=== PATIENT | female | born 1960 | race Caucasian/White ===

== ENCOUNTER 2017-06-30 13:40 | Emergency (ER) | payer MEDICARE | END 2017-06-30 17:16 | disposition home or self-care (01) | LOC: D.ER 13:40 | DX: E86.0 Dehydration (principal); E87.6 Hypokalemia; J44.9 Chronic obstructive pulmonary disease, unspecified; K21.9 Gastro-esophageal reflux disease without esophagitis; B19.20 Unspecified viral hepatitis C without hepatic coma ==

== ENCOUNTER 2017-12-16 12:30 | Emergency (ER) | payer MEDICARE | END 2017-12-16 14:30 | disposition home or self-care (01) | LOC: D.ER 12:30 | DX: M54.16 Radiculopathy, lumbar region (principal); R63.4 Abnormal weight loss; J44.9 Chronic obstructive pulmonary disease, unspecified; F17.200 Nicotine dependence, unspecified, uncomplicated ==

== ENCOUNTER → 2017-12-31 15:34 | Outpatient (CLI) | payer MEDICARE | END | disposition home or self-care (01) | LOC: D.MRI 15:34 | DX: S32.10XA Unspecified fracture of sacrum, initial encounter for closed fracture (principal); X58.XXXA Exposure to other specified factors, initial encounter; Y93.89 Activity, other specified; Y92.9 Unspecified place or not applicable ==

== ENCOUNTER → 2018-02-12 09:54 | Outpatient (CLI) | payer MEDICARE | END | disposition home or self-care (01) | LOC: D.MRI 02-06 10:00 | DX: M54.12 Radiculopathy, cervical region (principal); M25.552 Pain in left hip; M25.551 Pain in right hip ==

== ENCOUNTER → 2018-02-28 14:28 | Outpatient (CLI) | payer MEDICARE | END | disposition home or self-care (01) | LOC: D.CT 14:28 | DX: J18.9 Pneumonia, unspecified organism (principal) ==

== ENCOUNTER → 2018-07-07 09:54 | Outpatient (CLI) | payer MEDICARE ==
[~2018-07-07 09:54] MED LIST: ALBUTEROL SULF8.5 GM; ALDACTONE25 MG PO; DIFLUCAN200 MG; FUROSEMIDE40 MG PO; K-DUR20 MEQ; LIBRIUM 10 MG C10 MG PO; MOVANTIK25 MG; OXYCODONE-APAP1 TAB PO; POTASSIUM20 MEQ/11; PULMICORT0.5 MG/21; TOPAMAX200 MG; VITAMIN B-1100 M1
[2018-07-15 12:35] VITALS: BMI 14.6
== END | disposition home or self-care (01) ==
LOC: D.MRI 09:54
DX: R93.8 Abnormal findings on diagnostic imaging of other specified body structures (principal)

== ENCOUNTER 2018-07-15 10:09 | Day surgery (SDC) | payer MEDICARE ==
[~2018-07-15] VITALS: Ht 165.1 cm; Wt 40.0 kg
--- NOTE | ~2018-07-15 | OP ---
PATIENT NAME: GAIL NEIL MEDICAL RECORD: [id number] :58 LOCATION:D.[facility] ADMISSION DATE: SURGEON: ALINE TAYLOR MD DATE OF OPERATION: 07/15/2018 PROCEDURE: EGD with biopsy, EGD with balloon dilatation. BOAT DRIVER: Aline Taylor MD SCOPE: Olympus video gastroscope and CRE microvasive balloon from 45-60 Bahraini. MEDICATIONS: Provided per TIVA anesthesia. The patient has obstructive sleep apnea and received 200 mg of propofol for this procedure, O2 4 liters. 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 FINDINGS: Informed consent was given. The patient was made comfortable with the above medications. After reaching an adequate level of sedation by slow IV push, the patient was placed on her left side. The endoscope was then advanced under direct visualization through the posterior pharyngeal area and advanced to the distal esophagus. At the distal esophageal area, a Galicia's esophagus was appreciated and this was biopsied after we balloon dilated the distal esophageal area to 60-Bahraini. Additionally, the patient had a stenotic Schatzki's ring requiring dilatation as well as a small hiatal hernia seen both on direct and retroflex views. On entering the stomach, a very mild inflammation was seen throughout and Helicobacter pylori histopathology biopsy was taken up within the antrum. The duodenal bulb to the second portion had mild inflammation present. Biopsies were obtained. Of note, we also obtained biopsies due to the history of gluten intolerance. The scope was then withdrawn. IMPRESSION: 1. History of Galicia esophagus, biopsies obtained. 2. Distal Schatzki's ring dilated from 45-60 Bahraini without complication. 3. Small hiatal hernia. 4. Mild gastritis. 5. Mild duodenitis. 6. Gluten intolerance. Biopsies were taken in the second portion of the duodenum. Of note, biopsies were also taken at the antral area looking for H. pylori and of the distal esophagus to confirm Galicia's esophagus. PLAN: 1. Continue present medications, which will include omeprazole at a dose of 20 mg p.o. q.a.m. and Zantac 150 mg p.o. q.h.s. 2. Caution with anti-inflammatory drugs. 3. The patient to follow reflux precautions stringently, both dietary and positional, that is no chocolate, tomato, citrus, caffeine, fatty foods, peppermint, not eat late at night, sit up for a couple hours after meals. 4. Stop smoking. We will discuss this with the patient. TRANSINT:[id number] Voice Confirmation ID: [id number] DOCUMENT ID: [id number] OPERATIVE REPORT [id number] GAIL NEIL BRENDA MD at 1304 CC: ARACELIS MADRIGAL MD and SAURAV KEYS MD [id number] DICTATION DATE: 07/15/18 1323 GRAIN LOADER: 07/15/18 1340 DEP SDC 07/15/18 [address] [id number] [place] [address]
[2018-07-15 10:37] LABS: HEMATOCRIT 46.2 % (36.0-48.0); HEMOGLOBIN 15.6 g/dL (12-16); MCH 30.1 pg (26.0-34.0); MCHC 33.8 g/dL (31.0-37.0); MCV 89.2 fL (80.0-100.0); MEAN PLATELET VOLUME 8.9 fL (7.4-10.4); RBC 5.18 10x6/uL (4.00-5.40); RDW 16.7 % (11.5-14.5); WBC 7.7 10x3/uL (4.8-10.8)
[2018-07-15] MEDS ORDERED: K-DUR20 MEQ (11:23)
[2018-07-15] MEDS ORDERED: MOVANTIK25 MG PO (11:25)
[2018-07-15] MEDS ORDERED: PULMICORT0.5 MG/21 INH (11:26)
[2018-07-15] MEDS ORDERED: ALBUTEROL SULF8.5 GM INH (11:27)
[2018-07-15] MEDS ORDERED: TOPAMAX200 MG (11:27)
[2018-07-15] MEDS ORDERED: ALDACTONE25 MG PO (11:29)
[2018-07-15] MEDS ORDERED: VITAMIN B-1100 M1 PO (11:29)
[2018-07-15] MEDS ORDERED: LIBRIUM 10 MG C10 MG PO (11:29)
[2018-07-15] MEDS ORDERED: DIFLUCAN200 MG (11:30)
[2018-07-15] MEDS ORDERED: FUROSEMIDE40 MG PO (11:30)
[2018-07-15] MEDS ORDERED: POTASSIUM20 MEQ/11 PO (11:31)
[2018-07-15] MEDS ORDERED: OXYCODONE-APAP1 TAB PO (11:34)
[2018-07-15 12:35] VITALS: BP 110/65; Ht 165.1 cm; Wt 40.0 kg
== END 2018-07-15 14:30 | disposition home or self-care (01) ==
LOC: D.OPS 10:09
PROVIDERS: Anesthesiology
DX: K22.70 Barrett's esophagus without dysplasia (principal); K22.2 Esophageal obstruction; K44.9 Diaphragmatic hernia without obstruction or gangrene; K29.50 Unspecified chronic gastritis without bleeding; K29.80 Duodenitis without bleeding; K90.41 Non-celiac gluten sensitivity; G47.33 Obstructive sleep apnea (adult) (pediatric); Z01.812 Encounter for preprocedural laboratory examination

== ENCOUNTER 2018-08-05 10:52 | Inpatient (IN) | payer MEDICARE ==
[~2018-08-05] VITALS: Ht 165.1 cm; Wt 38.3 kg
--- NOTE | ~2018-08-05 | OP ---
PATIENT NAME: GAIL NEIL MEDICAL RECORD: [id number] :58 LOCATION:D. D.2112 ADMISSION DATE:08/05/18 SURGEON: EDILIA MCKENZIE MD DATE OF OPERATION: 08/06/2018 PROCEDURE: Colonoscopy with polypectomy, colonoscopy with biopsy. SCOPE: An Olympus video colonoscope MEDICATIONS: Per TIVA anesthesia. The patient received 180 mg of propofol for this procedure, O2 of 4 liters. INDICATION FOR THE PROPOFOL: Obstructive sleep apnea. INDICATION FOR THE PROCEDURE: Generalized abdominal pain, constipation with occasional diarrhea. FINDINGS: Informed consent was given. The patient was made comfortable with the above medications. After reaching an adequate level of sedation by slow IV push, the patient was placed on her left side. The rectal exam revealed good sphincter tone. No fissures or fistulas were appreciated. No external skin tags were seen. The colonoscope was advanced to the cecum where the ileocecal valve and appendiceal orifice were identified. On the ileocecal valve, a 1 cm polyp was seen and removed with hot biopsy forceps technique. This had a propensity to bleed and a Hemoclip was placed with an excellent result. 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 She is presently on Linzess, Amitiza, milk of magnesia. She does, however, require oxycodone for pain control, which is adding to the problem of constipation. Additionally, the patient is taking Movantik every day. A biopsy was taken in the rectal area to confirm the diagnosis of melanosis coli. Also as the patient does have some occasional diarrhea, we did collect stool and biopsied for that purpose. On retroflexion and final withdrawal of the scope, both internal and external hemorrhoids were seen. The patient did have spasm associated with irritable bowel syndrome, most pronounced on the left side of the colon and due to her previous abdominal surgeries, , hysterectomy and cholecystectomy she also had some mild adhesions. The scope was then withdrawn. IMPRESSION: 1. Melanosis coli. Biopsy obtained in the rectal area. 2. A 1 cm polyp on the IC valve, removed with hot biopsy forcep technique. Also, a Hemoclip placed to control some bleeding. 3. Internal and external hemorrhoids. 4. Spasm associated with irritable bowel syndrome. 5. Mild adhesions. PLAN: 1. Continue present medications. 2. High fiber diet. 3. Return to clinic on a p.r.n. basis. 4. The potassium was 1.9, and after every 4 hours potassium chloride p.o. administration, the patient's potassium was acceptable at 2.6. When she goes home and she tells me she takes approximately 80 mg of potassium a day, we will ask her to take an extra 20 mEq every day and eat foods rich in potassium. OPERATIVE REPORT [id number] GAIL NEIL Also, we will ask her to have her potassium checked this Saturday. TRANSINT:[id number] Voice Confirmation ID: [id number] DOCUMENT ID: [id number] EDILIA MCKENZIE MD at 1304 CC: ARACELIS MADRIGAL MD and SAURAV KEYS MD [id number] DICTATION DATE: 08/06/18 0853 UMBRELLA TIPPER MACHINE: 08/06/18 1102 DIS IN 08/06/18 [id number] [place] [address]
--- NOTE | ~2018-08-05 | MORECARE ---
CASE MANAGEMENT DISCHARGE SUMMARY PATIENT: GAIL NEIL UNIT: [id number] ADM DATE: 08/05/18 AGE: 58 : 58 SEX: F ROOM/BED: D.2112 AUTHOR: TRISTIAN,DOC PHYSICIAN: REFERRING PHYSICIAN: RYANNE RAMIREZ MD DATE OF SERVICE: 08/06/18 Discharge Plan Patient Name: GAIL NEIL Facility: [facility]:[place] : 1960 Planned Disposition: Home Anticipated Discharge Date: 08/06/18 Discharge Date: 08/06/2018 Expected LOS: 1 Initial Reviewer: [email or web address] Initial Review Date: 08/06/2018 Generated: 08/06/18 3:47 pm Comments DCP- Discharge Planning Updated by [email or web address]: Ubaldo Root on 08/06/18 1:[address] Patient Name: GAIL NEIL Admission Status: Elective Accout number: [id number] Admission Date: 08-05-2018 : 1960 Admission Diagnosis: Attending: RYANNE RAMIREZ Current LOS: 1 Anticipated DC Date: 08-06-2018 Planned Disposition: Home Primary Insurance: MEDICARE A & B Discharge Planning Comments: CM MET WITH PT IN ROOM TO DISCUSS DISCHARGE PLANNING AND NEEDS. PT REPORTS LIVING AT HOME INDEPENDENTLY; ALSO IN THE HOME IS PT'S ADULT SON. PT REPORTS HAVING ALL NEEDED MEDICAL EQUIPMENT, OXYGEN FROM [facility], WALKER FROM [facility] AND NEBULIZER FROM [employer]. PT HAS A PRIVATE PAY CAREGIVER FOR TRANSPORTATION AND ASSISTANCE AROUND THE HOME IF NEEDED. CM DISCUSSED AVAILABILITY OF HOME HEALTH, REHAB SERVICES AND MEDICAL EQUIPMENT. PT DENIES DISCHARGE NEEDS, REPORTS HER SON WILL PICK HER UP FOR DISCHARGE HOME TODAY. BROKER NURSE NOTIFIED. Geospatial Specialist: Ubaldo Root DCPIA - Discharge Planning Initial Assessment Updated by [email or web address]: Ubaldo Root on 08/06/18 2:42 pm * Is the patient Alert and Oriented? Yes * How many steps to enter\exit or inside your home? 3 W/RAIL * PCP DR. KEYS * Pharmacy [facility] [place] * Preadmission Environment Home with Family * ADLs Independent * Equipment Back Brace Cane Nebulizer Oxygen Walker * Other Equipment HOME AND PORTABLE OXYGEN, WEARS HOME OXYEN AT NIGHT ONLY [facility] - PROVIDER * List name and contact numbers for known caregivers / representatives who currently or will assist patient after discharge: LEESA NEIL, SON, * Verbal permission to speak to the caregivers and representatives has been obtained from the patient. N/A * Community resources currently utilized Private Duty Care * Please name any agencies selected above. PRIVATE PAY CAREGIVER, 6 HOURS PER DAY, 7 DAYS PER WEEK * Additional services required to return to the preadmission environment? No * Can the patient safely return to the preadmission environment? Yes * Has this patient been hospitalized within the prior 30 days at any hospital? No Patient Name: GAIL NEIL Page [phone] at 1447 All edits/amendments must be made on the electronic document DICTATION DATE: 08/06/181445 LICENSED MORTGAGE LOAN OFFICER: NELI 08/06/181445 RPT#: [id number] DC DATE:08/06/18 STATUS: DIS IN [facility] [address] [place] [address] END OF REPORT
[~2018-08-05 10:52] MED LIST changes: -ALBUTEROL SULF8.5 GM; +ALBUTEROL SULF8.5 GM INH; -MOVANTIK25 MG; +MOVANTIK25 MG PO; -POTASSIUM20 MEQ/11; +POTASSIUM20 MEQ/11 PO; -PULMICORT0.5 MG/21; +PULMICORT0.5 MG/21 INH; -VITAMIN B-1100 M1; +VITAMIN B-1100 M1 PO
[2018-08-05 11:33] LABS: HEMATOCRIT 45.4 % (36.0-48.0); HEMOGLOBIN 15.7 g/dL (12-16); MCH 30.3 pg (26.0-34.0); MCHC 34.6 g/dL (31.0-37.0); MCV 87.6 fL (80.0-100.0); RBC 5.18 10x6/uL (4.00-5.40); RDW 15.9 % (11.5-14.5); WBC 7.2 10x3/uL (4.8-10.8)
[2018-08-05] MEDS ORDERED: ZOFRAN8 MG PO (12:23)
[2018-08-05 12:38] VITALS: BP 95/57; BMI 14.0
[2018-08-05] MEDS ORDERED: TOPAMAX200 MG PO (20:16)
[2018-08-05 20:18] VITALS: BP 98/57; BMI 14.0
[2018-08-05 21:07] LABS: ALBUMIN 3.1 g/dL (3.4-5.0); ALKALINE PHOSPHATASE 45 U/L (46-116); ALT (SGPT) 24 U/L (10-68); BILIRUBIN - TOTAL 0.28 mg/dL (0.2-1.3); CALC OSMOLALITY 266 mosm/kg (275-300); CALCIUM 8.4 mg/dL (8.5-10.1); CARBON DIOXIDE 25.6 mmol/L (21.0-32.0); CHLORIDE - SERUM 98 mmol/L (98-107); CREATININE - SERUM 0.7 mg/dL (0.6-1.3); GLUCOSE 96 mg/dL (74-106); PROTEIN - SERUM 5.8 g/dL (6.4-8.2); SODIUM 134 mmol/L (136-145); UREA NITROGEN 11 mg/dL (7-18); eGFR NON AFRICAN AMERICAN > 90 mL/min (90-120)
[2018-08-05 21:09] LABS: POTASSIUM - SERUM 2.1 mmol/L (3.5-5.1)
[2018-08-06] VITALS: BP 92/46
[2018-08-06 04:00] VITALS: BP 107/53
[2018-08-06 06:13] LABS: BASOPHILS 0.5 % (0-2); EOSINOPHILS 3.5 % (0-7); HEMATOCRIT 39.9 % (36.0-48.0); HEMOGLOBIN 13.7 g/dL (12-16); IMMATURE GRANULOCYTES 0.2 % (0-5); LYMPHOCYTES 30.8 % (15-50); MCH 29.8 pg (26.0-34.0); MCHC 34.3 g/dL (31.0-37.0); MCV 86.7 fL (80.0-100.0); MEAN PLATELET VOLUME 9.1 fL (7.4-10.4); MONOCYTES 11.8 % (2-11); NEUTROPHILS 53.2 % (40-80); PLATELET COUNT 237 10x3/uL (130-400); RDW 15.9 % (11.5-14.5)
[2018-08-06 06:26] LABS: WBC 4.3 10x3/uL (4.8-10.8)
[2018-08-06 06:34] LABS: PROTIME 12.8 SECONDS (11.6-15.0)
[2018-08-06 06:44] LABS: ALKALINE PHOSPHATASE 42 U/L (46-116); ALT (SGPT) 24 U/L (10-68); BILIRUBIN - TOTAL 0.36 mg/dL (0.2-1.3); CALCIUM 8.7 mg/dL (8.5-10.1); CARBON DIOXIDE 25.3 mmol/L (21.0-32.0); CHLORIDE - SERUM 101 mmol/L (98-107); CREATININE - SERUM 0.7 mg/dL (0.6-1.3); GLUCOSE 88 mg/dL (74-106); PROTEIN - SERUM 5.6 g/dL (6.4-8.2); SODIUM 136 mmol/L (136-145); eGFR NON AFRICAN AMERICAN > 90 mL/min (90-120)
[2018-08-06 07:12] LABS: CALC OSMOLALITY 268 mosm/kg (275-300); UREA NITROGEN 8 mg/dL (7-18)
[2018-08-06 07:13] LABS: POTASSIUM - SERUM 2.6 mmol/L (3.5-5.1)
[2018-08-06] MEDS ORDERED: K-DUR20 MEQ PO (10:54)
[2018-08-06 11:12] VITALS: Ht 165.1 cm; Wt 38.3 kg
== END 2018-08-06 11:00 | disposition home or self-care (01) | DRG 988 ==
LOC: D.M2 10:52 → D.OPS 10:52 → D.M2 19:17 → D.OPS 19:18 → D.M2 19:19
PROVIDERS: Anesthesiology; Internal Medicine Gastroenterology
PROC: 0DBC8ZZ Excision of Ileocecal Valve, Via Natural or Artificial Opening Endoscopic (ICD-10-PCS; 2018-08-06)
PROC: 0DBP8ZX Excision of Rectum, Via Natural or Artificial Opening Endoscopic, Diagnostic (ICD-10-PCS; principal; 2018-08-06 07:30)
DX: E87.6 Hypokalemia (principal); F17.213 Nicotine dependence, cigarettes, with withdrawal; K63.89 Other specified diseases of intestine; K63.5 Polyp of colon; K58.1 Irritable bowel syndrome with constipation; K58.0 Irritable bowel syndrome with diarrhea; K21.9 Gastro-esophageal reflux disease without esophagitis; J44.9 Chronic obstructive pulmonary disease, unspecified; G40.909 Epilepsy, unspecified, not intractable, without status epilepticus; F55.2 Abuse of laxatives; K74.60 Unspecified cirrhosis of liver; M79.7 Fibromyalgia; K75.9 Inflammatory liver disease, unspecified; F41.9 Anxiety disorder, unspecified; N73.6 Female pelvic peritoneal adhesions (postinfective); K64.8 Other hemorrhoids; K64.4 Residual hemorrhoidal skin tags; G47.33 Obstructive sleep apnea (adult) (pediatric)

== ENCOUNTER → 2018-09-02 10:13 | Outpatient (CLI) | payer MEDICARE ==
[2018-08-06 11:12] VITALS: BMI 14.0
--- NOTE | ~2018-09-02 | EC ---
PATIENT:GAIL NEIL DATE OF SERVICE: 09/02/18 SEX: F MEDICAL RECORD: [id number] DATE OF : 58 LOCATION:D.RT AGE OF PATIENT: 58 ADMISSION DATE: 09/02/18 REFERRING PHYSICIAN: INTERPRETING PHYSICIAN: GERI FUNG MD ECHOCARDIOGRAM REPORT ECHO CHARGES 4 ECHO COMPLETE Date: 09/02/18 CLINICAL DIAGNOSIS: COPD ECHOCARDIOGRAPHIC MEASUREMENTS (adult normal given) AC root (d.<3.7cm) 2.8 cm LV Septum d (<1.2 cm> 0.9 cm Valve Excursion 1.8 cm LV Septum (systole) 1.4 cm Left Atria (s.<4.0cm> 1.7 cm LVPW d(<1.2cm) 0.8 cm RV (d.<2.3cm) 2.2 cm LVPW (sytole) 0.9 cm LV diastole(<5.6CM) 3.8 cm MV E-F(>70mm/sec) cm LV systole 2.7 cm LVOT Diameter 1.9 cm MV exc.(>10mm) cm Est.ejection fraction (50-75%) % DOPPLER: LVIT cm/sec A 43 cm/sec E 50 cm/sec LA cm/sec RVSP 29.6 mmHg LVOT 80 cm/sec AOP1/2T m/s Asc. Ao 96 cm/sec RVOT 73 cm/sec RA cm/sec PA 87 cm/sec AV Gradient Peak 3.7 mmHg AV Mean 2.3 mmHg AV Area 2.1 cm MV Gradient Peak 1.8 mmHg MV Mean 0.7 mmHg MV Area cm COMMENTS: Recooperer: Amaris KIMBROUGH Land Leveler: Yolanda Fung TAPE# PACS Pericardial Effusion N DATE OF SERVICE: 09/02/2018 FINDINGS: 1. Left ventricular chamber size is within normal limits. Left ventricular systolic function is normal. Overall ejection fraction estimated 60%. 2. Left atrium, right atrium, and right ventricular chamber sizes are within normal limits. 3. Valvular structures have normal structure and motion. 4. Doppler interrogation reveals trace tricuspid regurgitation. No other valvular insufficiency or stenosis, and pulmonary systolic pressure is normal, ECHOCARDIOGRAM REPORT [id number] GAIL NEIL estimated 30 mmHg. 5. No evidence of pericardial effusion or left ventricular thrombus. TRANSINT:[id number] Voice Confirmation ID: [id number] DOCUMENT ID: [id number] GERI FUNG MD at 1704 CC: [id number] DICTATION DATE: 09/03/18 1044 CUTTING MACHINE OPERATOR HELPER: 09/03/18 1126 DEP CLI 09/02/18 [id number] [place] [id number]
[~2018-09-02 10:13] MED LIST changes: +K-DUR20 MEQ PO; +TOPAMAX200 MG PO; +ZOFRAN8 MG PO
== END | disposition home or self-care (01) ==
LOC: D.RT 08-07 09:00
DX: R06.09 Other forms of dyspnea (principal); J44.9 Chronic obstructive pulmonary disease, unspecified

== ENCOUNTER → 2018-09-11 11:08 | Outpatient (CLI) | payer MEDICARE ==
[2018-08-06 11:12] VITALS: BMI 14.0
== END | disposition home or self-care (01) ==
LOC: D.NM 09-09 11:30
DX: K31.84 Gastroparesis (principal)

== ENCOUNTER → 2018-09-24 12:53 | Outpatient (CLI) | payer MEDICARE ==
[2018-08-06 11:12] VITALS: BMI 14.0
== END | disposition home or self-care (01) ==
LOC: D.RT 12:53
DX: J44.9 Chronic obstructive pulmonary disease, unspecified (principal)

== ENCOUNTER 2020-02-23 18:25 | Inpatient (IN) | payer OTHER ==
[~2020-02-23] VITALS: Ht 165.1 cm; Wt 30.0 kg
[2020-02-23] MEDS ORDERED: POTASSIUM CHLO10 ME1 PO (19:00)
--- NOTE | 2020-02-23 19:15 | NUR ---
PAGED GILMA HYDE APN. AWAITING RETURN CALL.
--- NOTE | 2020-02-23 19:27 | NUR ---
PATIENT ARRIVED TO FLOOR, TRANSPORTED BY ADMISSION STAFF. PATIENT IS ALERT AND ORIENTED. PATIENT IS UNSURE ABOUT WHAT MEDICATION SHE TAKES. PATIENT ALSO SEEMED VERY RELUCTANT TO GIVE INFORMATION FOR ADMISSION HISTORY AND ASSESSMENT. PER ORDER WILL PAGE GILMA HYDE APN FOR FURTHER ORDERS.
[2020-02-23] MEDS ORDERED: REGLAN10 MG PO (19:41)
[2020-02-23] MEDS ORDERED: PROLIA INJ 660 MG/M1 SC (19:41)
[2020-02-23] MEDS ORDERED: LAC-DOSE3000 UNIT PO (19:42)
[2020-02-23] MEDS ORDERED: PROBIOTIC1 EAC1 PO (19:43)
[2020-02-23] MEDS ORDERED: PHAZYME180 MG PO (19:44)
[2020-02-23] MEDS ORDERED: AMITIZA24 MCG PO (19:45)
[2020-02-23] MEDS ORDERED: LINZESS145 MCG PO (19:48)
[2020-02-23 19:49] LABS: BASOPHILS 0.2 % (0-2); HEMATOCRIT 39.1 % (36.0-48.0); HEMOGLOBIN 14.4 g/dL (12-16); IMMATURE GRANULOCYTES 0.4 % (0-5); MCH 31.9 pg (26.0-34.0); MCHC 36.8 g/dL (31.0-37.0); MCV 86.7 fL (80.0-100.0); MEAN PLATELET VOLUME 8.1 fL (7.4-10.4); MONOCYTES 8.3 % (2-11); NEUTROPHILS 74.1 % (40-80); RBC 4.51 10x6/uL (4.00-5.40); RDW 13.8 % (11.5-14.5); WBC 9.1 10x3/uL (4.8-10.8)
[2020-02-23] MEDS ORDERED: TORSEMIDE20 MG PO (19:49)
[2020-02-23] MEDS ORDERED: METHOCARBAMOL500 MG PO (19:51)
[2020-02-23 19:52] LABS: PLATELET COUNT 326 10x3/uL (130-400)
[2020-02-23] MEDS ORDERED: CREON DR 6,0001 EACH PO (19:52)
[2020-02-23] MEDS ORDERED: HYDROXYZINE HCL50 MG PO (19:53)
[2020-02-23] MEDS ORDERED: PHENERGAN6.25 MG/5 PO (19:54)
[2020-02-23 20:02] LABS: CALC OSMOLALITY 261 mosm/kg (275-300); CALCIUM 8.5 mg/dL (8.5-10.1); CARBON DIOXIDE 17.5 mmol/L (21.0-32.0); CHLORIDE - SERUM 98 mmol/L (98-107); CREATININE - SERUM 0.8 mg/dL (0.6-1.3); GLUCOSE 106 mg/dL (74-106); SODIUM 130 mmol/L (136-145); UREA NITROGEN 14 mg/dL (7-18); eGFR NON AFRICAN AMERICAN 77 mL/min (90-120)
[2020-02-23 20:20] VITALS: BP 93/57
[2020-02-23 20:26] LABS: POTASSIUM - SERUM 2.4 mmol/L (3.5-5.1)
--- NOTE | 2020-02-23 21:02 | NUR ---
IV RIGHT FOREARM X1 ATTEMPT.
[2020-02-23 23:19] LABS: BILIRUBIN NEGATIVE (NEGATIVE); GLUCOSE NEGATIVE (NEGATIVE); KETONE NEGATIVE (NEGATIVE); NITRITE NEGATIVE (NEGATIVE); SPECIFIC GRAVITY 1.005 (1.005-1.020); UROBILINOGEN NORMAL (NORMAL)
[2020-02-23 23:21] LABS: BACTERIA FEW /hpf (NEGATIVE); EPITHELIAL CELLS 0-5 /hpf (0-5); RED CELLS - URINE 0-5 /hpf (0-5); WHITE CELLS - URINE 0-5 /hpf (NEGATIVE)
[2020-02-23 23:30] VITALS: BP 93/57; BMI 11.6
[2020-02-23 23:49] VITALS: BP 88/42
--- NOTE | 2020-02-24 04:07 | NUR ---
WAS REPORTED TO THIS NURSE THAT PATIENT BP WAS 76/33. PATIENT BP HAS BEEN STEADILY DROPPING THROUGHOUT THE NIGHT. ORDERS GIVEN TO GIVE PATIENT A 500 ML BOLUS AND TO KEEP PATIENT SYSTOLIC ABOVE 80.
[2020-02-24 04:52] VITALS: BP 76/33
[2020-02-24 04:56] LABS: BASOPHILS 0.3 % (0-2); EOSINOPHILS 1.3 % (0-7); HEMATOCRIT 38.6 % (36.0-48.0); HEMOGLOBIN 13.5 g/dL (12-16); IMMATURE GRANULOCYTES 0.4 % (0-5); LYMPHOCYTES 18.1 % (15-50); MCV 88.5 fL (80.0-100.0); MEAN PLATELET VOLUME 8.3 fL (7.4-10.4); MONOCYTES 10.7 % (2-11); NEUTROPHILS 69.2 % (40-80); PLATELET COUNT 360 10x3/uL (130-400); RBC 4.36 10x6/uL (4.00-5.40); RDW 14.1 % (11.5-14.5); WBC 6.9 10x3/uL (4.8-10.8)
[2020-02-24 05:23] VITALS: BP 80/46
--- NOTE | 2020-02-24 05:23 | NUR ---
RECHECKED BP AFTER BOLUS 80/46
[2020-02-24 05:25] LABS: ALBUMIN 2.7 g/dL (3.4-5.0); BILIRUBIN - TOTAL 0.34 mg/dL (0.2-1.3); CALCIUM 8.2 mg/dL (8.5-10.1); CARBON DIOXIDE 18.9 mmol/L (21.0-32.0); CHOL - HDL RATIO 3.4 ratio (2.3-4.1); CREATININE - SERUM 0.9 mg/dL (0.6-1.3); PROTEIN - SERUM 5.4 g/dL (6.4-8.2)
[2020-02-24 05:31] LABS: PHOSPHOROUS 1.3 mg/dL (2.5-4.9); POTASSIUM - SERUM 2.9 mmol/L (3.5-5.1)
[2020-02-24 05:48] LABS: APTT 27.8 SECONDS (22.8-39.4); INR 0.99 (0.85-1.17)
--- NOTE | 2020-02-24 07:10 | NUR ---
REPORT RECEIVED FROM EQUIPMENT PROCESSER STORAGE AND PATIENT CARE ASSUMED. PATIENT SITTING UP IN BED AWAKE, ALERT AND ORIENTED X 4. BP IS 87/43. STARTED BOLUS OF 500 MG PER ORDERS. PATIENT STATES THAT HER BP RUNS LOW. PATIENT DENIES ANY PAIN OR NEEDS. WILL CONTINUE WITH PLAN OF CARE. SR UP X 2 BED IN LOW POSITION AND CALL LIGHT IN REACH.
[2020-02-24 08:58] VITALS: BP 87/43
--- NOTE | 2020-02-24 09:30 | NUR ---
PATIENT IS COMPLAINING BEING ON FULL LIQUID DIET, NOT GETTING HER SLEEP MEDICINE AND NOT GETTING HER PAIN MEDICATION. NIGHT NURSE EXPLIANED WELL, DUE TO HER LOW BP 80/40 THE DOCTOR IS HOLDING HER SLEEP AND PAIN RX. PATIENT TO DISCUSS FURTHER WHEN DR ROUNDS. SR UPX 2 BED IN LOW POSITION AND CALL LIGHT IN REACH.
[2020-02-24 12:14] VITALS: BMI 10.9
[2020-02-24 13:21] VITALS: BP 101/31
[2020-02-24 13:28] VITALS: Ht 165.1 cm; Wt 30.0 kg
[2020-02-24 15:31] LABS: BILIRUBIN NEGATIVE (NEGATIVE); GLUCOSE NEGATIVE (NEGATIVE); KETONE NEGATIVE (NEGATIVE); NITRITE NEGATIVE (NEGATIVE); UROBILINOGEN NORMAL (NORMAL)
[2020-02-24 15:38] LABS: CREATININE - URINE 8.1 mg/dL (30-125); POTASSIUM - URINE 4.8 MMOL/L (12.0-62.0); PRO/CRE RATIO URINE 2.7 mg/g; PROTEIN - URINE 22.2 mg/dL (0.0-11.9)
--- NOTE | 2020-02-24 15:50 | NUR ---
DR MINOR IN ROOM . NEW ORDERS RECEIVED.
[2020-02-24 17:04] LABS: UDS - AMPHET NEGATIVE QUAL (NEGATIVE); UDS - BARB NEGATIVE QUAL (NEGATIVE); UDS - BENZO NEGATIVE QUAL (NEGATIVE); UDS - COCAINE NEGATIVE QUAL (NEGATIVE); UDS - OPIATE NEGATIVE QUAL (NEGATIVE); UDS - PCP NEGATIVE QUAL (NEGATIVE); UDS - THC NEGATIVE QUAL (NEGATIVE)
[2020-02-24 18:44] LABS: POTASSIUM - SERUM 3.5 mmol/L (3.5-5.1)
[2020-02-24 18:46] LABS: PHOSPHOROUS 2.1 mg/dL (2.5-4.9)
[2020-02-24 18:53] VITALS: BP 89/43
--- NOTE | 2020-02-24 19:30 | NUR ---
RECEIVED BEDSIDE RREPORT. PATIENT IS ALERT AND ORIENTED, RESTING COMFORTABLY IN BED. RESPIRATIONS ARE EVEN AND UNLABORED. NO S/S OF DISTRESS. NO C/O PAIN. CALL LIGHT WITHIN REACH. WILL CPOC.
[2020-02-24 20:00] VITALS: BP 127/80
[2020-02-25] VITALS: BP 72/43
[2020-02-25 04:00] VITALS: BP 98/48
[2020-02-25 04:56] LABS: BASOPHILS 0.3 % (0-2); HEMATOCRIT 37.4 % (36.0-48.0); HEMOGLOBIN 12.7 g/dL (12-16); IMMATURE GRANULOCYTES 0.1 % (0-5); LYMPHOCYTES 11.8 % (15-50); MEAN PLATELET VOLUME 8.6 fL (7.4-10.4); MONOCYTES 8.2 % (2-11); NEUTROPHILS 78.6 % (40-80); PLATELET COUNT 355 10x3/uL (130-400); RDW 14.9 % (11.5-14.5)
[2020-02-25 05:03] LABS: MCV 91.2 fL (80.0-100.0); WBC 8.8 10x3/uL (4.8-10.8)
[2020-02-25 08:22] LABS: ALBUMIN 2.8 g/dL (3.4-5.0); ALKALINE PHOSPHATASE 81 U/L (30-120); ALT (SGPT) 36 U/L (10-68); BILIRUBIN - TOTAL 0.22 mg/dL (0.2-1.3); CALCIUM 8.2 mg/dL (8.5-10.1); CARBON DIOXIDE 16.8 mmol/L (21.0-32.0); CHLORIDE - SERUM 108 mmol/L (98-107); MAGNESIUM - SERUM 1.5 mg/dL (1.8-2.4); POTASSIUM - SERUM 4.1 mmol/L (3.5-5.1); PRO BNP 3795 pg/mL (0-125); PROTEIN - SERUM 5.3 g/dL (6.4-8.2); SODIUM 136 mmol/L (136-145)
[2020-02-25 08:24] LABS: CALC OSMOLALITY 268 mosm/kg (275-300); CREATININE - SERUM 0.6 mg/dL (0.6-1.3); GLUCOSE 74 mg/dL (74-106); LIPASE 1634 U/L (73-393); PHOSPHOROUS 3.7 mg/dL (2.5-4.9); UREA NITROGEN 6 mg/dL (7-18); eGFR NON AFRICAN AMERICAN > 90 mL/min (90-120)
[2020-02-25 09:09] LABS: HEPATITIS C ANTIBODY >11.0 S/CO RAT (0.0-0.9)
[2020-02-25 09:32] VITALS: BP 108/66
[2020-02-25 13:09] LABS: OSMOLALITY - URINE 113 (())
[2020-02-25 13:39] VITALS: BP 84/35
--- NOTE | 2020-02-25 16:59 | MORECARE ---
CASE MANAGEMENT DISCHARGE SUMMARY PATIENT: GAIL STEVE UNIT: [id number] ADM DATE: 02/23/20 AGE: 59 : 58 SEX: F ROOM/BED: D.8940 AUTHOR: KEVON LUBIN PHYSICIAN: REFERRING PHYSICIAN: GRISELDA GARCIA MD DATE OF SERVICE: 02/25/20 Discharge Plan Patient Name: GAIL STEVE Facility: [facility]:[place] : 1960 Planned Disposition: Home with Home Health Anticipated Discharge Date: 02/25/20 Discharge Date: Expected LOS: 2 Initial Reviewer: [email or web address] Initial Review Date: 02/23/2020 Generated: 02/25/20 5:59 pm Comments DCP- Discharge Planning Updated by [email or web address]: Ebony Jo on 02/25/20 3:[address] DC Needs: [facility] has been notified of DC and resumption of care. PA signed prescription for a shower chair/bench, has been provided to the patient. CM met with patient regarding DC needs/plans. Patient is in agreement for the CM interview. Patient lives independently, alone in her apartment. Correct address: [address] [place] [address], [facility], [place]. PCP: Fadia Enamorado APRN, with [facility] [place]. DME: [facility]ann[facility] dam[facility]. Emergency contact:: Dillon Steve (son) [phone]. Patient pays a friend to clean her apartment. Patient request a shower chair/tub bench from [employer]. Contacted [facility] for the patient. A signed order for same was given to patient and instructed her to call the number on the back of her insurance card, to inform her insurance of the need. [facility] provides an allotment for their patients every three months and the patient is then able to use that allotment to purchase her shower chair/bench. Patient states she feels safe returning to her apartment. Denie being hospitalized within past 30 days. Transportation: Rebekah or her mother. Patient voices no other needs at this time. Patient Name: GAIL STEVE Page [phone] at 1651 All edits/amendments must be made on the electronic document DICTATION DATE: 02/25/201658 SALES ORDER CLERK: NELI 02/25/201658 RPT#: [id number] [place] DATE: STATUS: ADM IN [facility] [address] [place] [address] END OF REPORT
--- NOTE | 2020-02-25 17:04 | NUR ---
IV AND TELEMETRY DCD. DC PLANS GIVEN. UNDERSTANDING VOICED. ESCORTED TO CAR BY W/C.
--- NOTE | 2020-02-25 17:27 | MORECARE ---
CASE MANAGEMENT DISCHARGE SUMMARY PATIENT: GAIL STEVE UNIT: [id number] ADM DATE: 02/23/20 AGE: 59 : 58 SEX: F ROOM/BED: D.5999 AUTHOR: TRISTIAN,DOC PHYSICIAN: REFERRING PHYSICIAN: GRISELDA GARCIA MD DATE OF SERVICE: 02/25/20 Discharge Plan Patient Name: GAIL STEVE Facility: [facility]:[place] : 1960 Planned Disposition: Home with Home Health Anticipated Discharge Date: 02/25/20 Discharge Date: 02/25/2020 Expected LOS: 2 Initial Reviewer: [email or web address] Initial Review Date: 02/23/2020 Generated: 02/25/20 6:27 pm Comments DCP- Discharge Planning Updated by [email or web address]: Ebony Jo on 02/25/20 3:[address] DC Needs: [facility] has been notified of DC and resumption of care. PA signed prescription for a shower chair/bench, has been provided to the patient. CM met with patient regarding DC needs/plans. Patient is in agreement for the CM interview. Patient lives independently, alone in her apartment. Correct address: [address] [place] [address], [facility], [place]. PCP: Fadia Enamorado APRN, with [facility] [place]. DME: [facility]. Emergency contact:: Dillon Steve (son) [phone]. Patient pays a friend to clean her apartment. Patient request a shower chair/tub bench from [facility]. Contacted [facility] for the patient. A signed order for same was given to patient and instructed her to call the number on the back of her insurance card, to inform her insurance of the need. [facility] provides an allotment for their patients every three months and the patient is then able to use that allotment to purchase her shower chair/bench. Patient states she feels safe returning to her apartment. Denie being hospitalized within past 30 days. Transportation: Rebekah or her mother. Patient voices no other needs at this time. DCPIA - Discharge Planning Initial Assessment Updated by [email or web address]: Ebony Jo on 02/25/20 5:25 pm * Is the patient Alert and Oriented? Yes * How many steps to enter\exit or inside your home? No * PCP Fadia Enamorado APRN * Pharmacy [facility] * Preadmission Environment Home Alone * ADLs Independent * Equipment Cane Walker * Other Equipment NA * List name and contact numbers for known caregivers / representatives who currently or will assist patient after discharge: Dillon Steve (son) [phone] * Verbal permission to speak to the caregivers and representatives has been obtained from the patient. N/A * Community resources currently utilized Home Health * Please name any agencies selected above. [facility] * Additional services required to return to the preadmission environment? Yes * Can the patient safely return to the preadmission environment? Yes * Has this patient been hospitalized within the prior 30 days at any hospital? No Last DP export: 02/25/20 3:59 p Patient Name: GAIL STEVE Page [phone] at 1727 All edits/amendments must be made on the electronic document DICTATION DATE: 02/25/201726 HOUSE ADMIN: NELI 02/25/201726 RPT#: [id number] DC DATE:02/25/20 STATUS: DIS IN [facility] [address] [place] [address] END OF REPORT
== END 2020-02-25 17:05 | disposition home health service (06) | DRG 640 ==
LOC: D.M2 18:25
PROVIDERS: Family Medicine; Internal Medicine Gastroenterology; Internal Medicine Nephrology; ADMIT Family Medicine; ATTEND Family Medicine
DX: E87.6 Hypokalemia (principal); K85.90 Acute pancreatitis without necrosis or infection, unspecified; F17.213 Nicotine dependence, cigarettes, with withdrawal; F17.203 Nicotine dependence unspecified, with withdrawal; E87.1 Hypo-osmolality and hyponatremia; K74.60 Unspecified cirrhosis of liver; K58.9 Irritable bowel syndrome, unspecified; K21.9 Gastro-esophageal reflux disease without esophagitis; J44.9 Chronic obstructive pulmonary disease, unspecified; F41.9 Anxiety disorder, unspecified; M81.0 Age-related osteoporosis without current pathological fracture; E11.9 Type 2 diabetes mellitus without complications; I25.10 Atherosclerotic heart disease of native coronary artery without angina pectoris

== ENCOUNTER → 2020-03-21 15:05 | Outpatient (CLI) | payer OTHER ==
[2020-02-24 13:28] VITALS: BMI 10.9
[~2020-03-21 15:05] MED LIST changes: +AMITIZA24 MCG PO; +CREON DR 6,0001 EACH PO; +HYDROXYZINE HCL50 MG PO; +LAC-DOSE3000 UNIT PO; +LINZESS145 MCG PO; +METHOCARBAMOL500 MG PO; +PHAZYME180 MG PO; +PHENERGAN6.25 MG/5 PO; +POTASSIUM CHLO10 ME1 PO; +PROBIOTIC1 EAC1 PO; +PROLIA INJ 660 MG/M1 SC; +REGLAN10 MG PO; +TORSEMIDE20 MG PO
== END | disposition home or self-care (01) ==
LOC: D.LAB 15:05
PROVIDERS: ATTEND Nurse Practitioner
DX: E87.6 Hypokalemia (principal)

== ENCOUNTER → 2020-04-06 21:34 | Outpatient (CLI) | payer OTHER ==
[2020-02-24 13:28] VITALS: BMI 10.9
[2020-04-06 22:07] LABS: ANION GAP 12.7 mmol/L (8-16); CARBON DIOXIDE 21.5 mmol/L (21.0-32.0); POTASSIUM - SERUM 4.2 mmol/L (3.5-5.1)
== END | disposition home or self-care (01) ==
LOC: D.LABREF 21:34
PROVIDERS: ATTEND Family Medicine
DX: E87.6 Hypokalemia (principal); K74.60 Unspecified cirrhosis of liver

== ENCOUNTER → 2020-04-14 12:00 | Outpatient (CLI) | payer OTHER ==
[2020-02-24 13:28] VITALS: BMI 10.9
[2020-04-14 13:20] LABS: ANION GAP 15.5 mmol/L (8-16); CARBON DIOXIDE 23.9 mmol/L (21.0-32.0); CREATININE - SERUM 0.9 mg/dL (0.6-1.3); POTASSIUM - SERUM 4.4 mmol/L (3.5-5.1)
[2020-04-14 13:32] LABS: ALBUMIN 4.6 g/dL (3.4-5.0); BILIRUBIN - TOTAL 0.31 mg/dL (0.2-1.3); PROTEIN - SERUM 7.8 g/dL (6.4-8.2)
== END | disposition home or self-care (01) ==
LOC: D.LABREF 12:00
PROVIDERS: ATTEND Family Medicine
DX: K74.60 Unspecified cirrhosis of liver (principal); E87.6 Hypokalemia

== ENCOUNTER → 2020-04-19 18:29 | Outpatient (CLI) | payer OTHER ==
[2020-02-24 13:28] VITALS: BMI 10.9
[2020-04-19 19:13] LABS: CALC OSMOLALITY 260 mosm/kg (275-300); CALCIUM 8.6 mg/dL (8.5-10.1); CARBON DIOXIDE 20.7 mmol/L (21.0-32.0); CHLORIDE - SERUM 98 mmol/L (98-107); CREATININE - SERUM 0.5 mg/dL (0.6-1.3); PHOSPHOROUS 3.3 mg/dL (2.5-4.9); POTASSIUM - SERUM 5.1 mmol/L (3.5-5.1); SODIUM 130 mmol/L (136-145); UREA NITROGEN 18 mg/dL (7-18); eGFR NON AFRICAN AMERICAN > 90 mL/min (90-120)
[2020-04-19 19:20] LABS: GLUCOSE 68 mg/dL (74-106)
== END | disposition home or self-care (01) ==
LOC: D.LABREF 18:29
PROVIDERS: ATTEND Family Medicine
DX: K74.60 Unspecified cirrhosis of liver (principal)

== ENCOUNTER 2020-07-07 20:26 | Inpatient (IN) | payer OTHER ==
[~2020-07-07] VITALS: Ht 165.1 cm; Wt 33.2 kg
[2020-07-07 20:29] VITALS: Ht 165.1 cm; Wt 33.2 kg
[2020-07-07 21:09] LABS: BASOPHILS 0.4 % (0-2); EOSINOPHILS 2.6 % (0-7); HEMATOCRIT 46.7 % (36.0-48.0); HEMOGLOBIN 15.7 g/dL (12-16); IMMATURE GRANULOCYTES 0.3 % (0-5); LYMPHOCYTES 23.9 % (15-50); MCH 31.8 pg (26.0-34.0); MCHC 33.6 g/dL (31.0-37.0); MCV 94.5 fL (80.0-100.0); MEAN PLATELET VOLUME 8.6 fL (7.4-10.4); MONOCYTES 6.6 % (2-11); NEUTROPHILS 66.2 % (40-80); RBC 4.94 10x6/uL (4.00-5.40); RDW 16.4 % (11.5-14.5); WBC 7.4 10x3/uL (4.8-10.8)
[2020-07-07 21:18] LABS: APTT 25.9 SECONDS (22.8-39.4); INR 0.92 (0.85-1.17); PROTIME 12.3 SECONDS (11.6-15.0)
[2020-07-07 21:24] LABS: PLATELET COUNT 239 10x3/uL (130-400)
[2020-07-07 21:32] LABS: ALBUMIN 4.1 g/dL (3.4-5.0); ANION GAP 15.2 mmol/L (8-16); BILIRUBIN - TOTAL 0.19 mg/dL (0.2-1.3); CALCIUM 8.7 mg/dL (8.5-10.1); CARBON DIOXIDE 18.5 mmol/L (21.0-32.0); MAGNESIUM - SERUM 2.5 mg/dL (1.8-2.4); THYROID STIMULATING HORMONE 0.2 uIU/mL (0.36-3.74)
[2020-07-07 21:34] LABS: POTASSIUM - SERUM 2.7 mmol/L (3.5-5.1)
[2020-07-07 21:50] LABS: BILIRUBIN NEGATIVE (NEGATIVE); KETONE NEGATIVE (NEGATIVE); NITRITE NEGATIVE (NEGATIVE); UROBILINOGEN NORMAL mg/dL (< 2)
[2020-07-07 22:03] LABS: UDS - AMPHET NEGATIVE QUAL (NEGATIVE); UDS - BARB NEGATIVE QUAL (NEGATIVE); UDS - BENZO NEGATIVE QUAL (NEGATIVE); UDS - COCAINE NEGATIVE QUAL (NEGATIVE); UDS - OPIATE NEGATIVE QUAL (NEGATIVE); UDS - PCP NEGATIVE QUAL (NEGATIVE); UDS - THC NEGATIVE QUAL (NEGATIVE)
[2020-07-07 22:13] VITALS: BP 82/42
[2020-07-07 22:30] VITALS: BP 85/46
--- NOTE | 2020-07-07 22:40 | NUR ---
PT STATES HER BP ALWAYS RUNS LOW PT STATES THAT 70 SYSTOLIC IS NORMAL FOR HER. INFORMED. SEE EMAR FOR ORDERS.
[2020-07-07 23:00] VITALS: BP 76/40
[2020-07-07 23:30] VITALS: BP 77/42
--- NOTE | 2020-07-07 23:54 | NUR ---
BOLUS NS # 1 DONE
[2020-07-08] VITALS (23 sets, daily range): BP systolic 72–124; BP diastolic 30–65
--- NOTE | 2020-07-08 01:20 | NUR ---
NS BOLUS # 2 DONE
--- NOTE | 2020-07-08 03:15 | NUR ---
GILMA HYDE APRN INFORMED OF PT CONTINUOUS LOW BP. SEE EMAR.
--- NOTE | 2020-07-08 03:56 | NUR ---
PT AWAKE ASKING FOR SOME THING TO DRINK/EAT. INFORMED OF NPO STATUS. WILL NEED TO SEE MD IN AM. PT OK WITH POC.
--- NOTE | 2020-07-08 06:08 | NUR ---
PT UP TO BATHROOM, PT ASKING FOR SOMETHING TO DRINK. DR GANN STATES THAT PT CAN HAVE ICE CHIPS
--- NOTE | 2020-07-08 09:20 | NUR ---
PT SON: MALIKA NEIL [phone]
--- NOTE | 2020-07-08 09:24 | NUR ---
SPOKE TO VOISE, AWARE OF CONSULT
--- NOTE | 2020-07-08 09:29 | NUR ---
SPOKE TO MIRIAM ON RESIDENTIAL FOR CONSULT TO [facility], FACE SHEET FAXED
--- NOTE | 2020-07-08 10:14 | NUR ---
INESSA WITH SENIOR PSYCH AT BEDSIDE.
--- NOTE | 2020-07-08 10:35 | NUR ---
PT CONTINUES RESTING QUIETLY, EYES CLOSED, BREATHING EUPNEIC. PT OPENS EYES SPONTANEOUSLY WHEN THIS RN ENTERS ROOM. REQUESTS ICE CHIPS. ICE CHIPS PROVIDED. PT DENIES FURTHER NEEDS AT THIS TIME.
[2020-07-08 10:40] LABS: BASOPHILS 0.3 % (0-2); EOSINOPHILS 1.6 % (0-7); HEMOGLOBIN 13.8 g/dL (12-16); IMMATURE GRANULOCYTES 0.2 % (0-5); LYMPHOCYTES 10.6 % (15-50); MCH 31.7 pg (26.0-34.0); MCHC 32.9 g/dL (31.0-37.0); MCV 96.3 fL (80.0-100.0); MEAN PLATELET VOLUME 8.7 fL (7.4-10.4); MONOCYTES 7.3 % (2-11); PLATELET COUNT 263 10x3/uL (130-400); RBC 4.36 10x6/uL (4.00-5.40); RDW 16.8 % (11.5-14.5)
[2020-07-08 10:45] LABS: WBC 11.2 10x3/uL (4.8-10.8)
--- NOTE | 2020-07-08 10:50 | NUR ---
PER INESSA BEAL, PT DOES NOT REQUIRE 1:1 OBSERVATION AT THIS TIME.
[2020-07-08 10:52] LABS: APTT 26.4 SECONDS (22.8-39.4); INR 1.05 (0.85-1.17); PROTIME 13.7 SECONDS (11.6-15.0)
[2020-07-08 11:11] LABS: ALKALINE PHOSPHATASE 65 U/L (30-120); ALT (SGPT) 33 U/L (10-68); BILIRUBIN - TOTAL 0.31 mg/dL (0.2-1.3); CALC OSMOLALITY 280 mosm/kg (275-300); CHLORIDE - SERUM 115 mmol/L (98-107); GLUCOSE 98 mg/dL (74-106); MAGNESIUM - SERUM 2.9 mg/dL (1.8-2.4); PHOSPHOROUS 2.5 mg/dL (2.5-4.9); PROTEIN - SERUM 5.3 g/dL (6.4-8.2); SODIUM 141 mmol/L (136-145); UREA NITROGEN 13 mg/dL (7-18)
[2020-07-08 11:12] LABS: CREATININE - SERUM 0.6 mg/dL (0.6-1.3); POTASSIUM - SERUM 3.9 mmol/L (3.5-5.1); eGFR NON AFRICAN AMERICAN > 90 mL/min (90-120)
--- NOTE | 2020-07-08 11:30 | NUR ---
DR YOUSIF AT BEDSIDE.
--- NOTE | 2020-07-08 13:33 | NUR ---
PER DR. YOUSIF, PT TO HAVE A REGULAR DIET ET IS OK TO STOP LEVOPHED DRIP. ALSO, PT NO LONGER NEEDS AN ICU BED FOR ADMISSION. PT MAY TO GO FLOOR.
--- NOTE | 2020-07-08 15:12 | NUR ---
LEVOPHED INFUSION STOPPED PER VERBAL ORDER DR. YOUSIF AT 1500. PROTONIX INFUSION COMPLETE AT 1500. BANANA BAG INFUSION COMPLETE AT 1300. NS WITH POTASSIUM COMPLETE AT 1000.
--- NOTE | 2020-07-08 15:14 | NUR ---
PT AMBULATES TO BR WITH STEADY GAIT.
--- NOTE | 2020-07-08 15:16 | NUR ---
NEW POC PER DR. YOUSIF: WILL MONITOR PT IN ED FOR A COUPLE OF HOURS ET IF PT HOLDS BP, PT WILL DISCHARGE HOME. PT IN AGREEMENT WITH POC.
--- NOTE | 2020-07-08 16:00 | NUR ---
PT OK FOR HOME DISCHARGE PER DR YOUSIF AT THIS TIME.
--- NOTE | 2020-07-08 16:28 | NUR ---
RX CALLED TO [facility] FOR LIBRIUM 10MG ONE DAILY X [address] LUKASZ YOUSIF.
== END 2020-07-08 17:00 | disposition home or self-care (01) | DRG 378 ==
LOC: D.ER 20:26 → D.EDHOLD 22:11
PROVIDERS: Emergency Medicine; ADMIT Family Medicine; ATTEND Family Medicine
DX: K92.0 Hematemesis (principal); R45.851 Suicidal ideations; F17.203 Nicotine dependence unspecified, with withdrawal; F33.9 Major depressive disorder, recurrent, unspecified; D62 Acute posthemorrhagic anemia; F10.129 Alcohol abuse with intoxication, unspecified; E87.6 Hypokalemia; I95.9 Hypotension, unspecified; K75.9 Inflammatory liver disease, unspecified; K74.60 Unspecified cirrhosis of liver; M79.7 Fibromyalgia; J44.9 Chronic obstructive pulmonary disease, unspecified; M19.90 Unspecified osteoarthritis, unspecified site; J45.909 Unspecified asthma, uncomplicated; K21.9 Gastro-esophageal reflux disease without esophagitis; G62.9 Polyneuropathy, unspecified; F10.20 Alcohol dependence, uncomplicated